=== PATIENT | female | born 1940 | race Caucasian/White ===

== ENCOUNTER 2019-05-09 12:34 | Emergency (ER) | payer OTHER, BC ==
[2019-05-09 12:46] VITALS: BP 159/82; PULSE 59; TEMP 97.8; BMI 29.2
--- NOTE | 2019-05-09 13:02 | PDOC ---
History of Present Illness - General Chief Complaint: Injury Stated Complaint: FALL, RT SHOULDER, UPPER ARM PAIN Time Seen by Provider: 05/09/19 13:02 - History of Present Illness Initial Comments: 05/09/19 14:04 Chief complaint: Right shoulder injury History of present illness: Patient tripped and fell, striking her right shoulder against the ground. This happened immediately [employer]. She complains of pain over the area of the deltoid and inability to abduct her arm due to pain. There is no distal numbness tingling or weakness. There is also pain in the right wrist and fingers. Review of systems denies pain or injury to the head neck chest abdomen spine pelvis or other extremities. Denies loss of consciousness. Denies lightheadedness, dizziness, vertigo, visual or focal neurologic symptoms, unsteadiness of gait Past medical history: High blood pressure, elevated cholesterol, maintained on Plavix but for uncertain reason. She is not aware of having atrial fibrillation or blood clots, and she has no history of angioplasty or stenting. Social/family history reviewed and noncontributory Physical exam: Alert and oriented well-developed well-nourished mild to moderate pain due to right shoulder injury. Cooperative Afebrile, vital signs stable Head atraumatic. PERRLA, fundi benign, ENT clear Neck without tenderness or deformity, full range of motion without pain Lungs clear to P&A. No rib cage or chest wall deformity or point tenderness CV S1 and S2 normal without murmur rub or gallop pulses full and symmetric no JVD or edema no bruits 90 and regular Abdomen soft nontender without mass or organomegaly. No CVAT No pelvic or spine deformity or point tenderness Neurological intact with cranial nerves intact and no focal sensory or motor deficits. Gait stable and unimpaired Extremities: No injury to the extremities except in the area of the right shoulder, right wrist, and right hand Right shoulder: No obvious deformity, but there is inability to abduct beyond 10 -15 due to pain. Tenderness over the anterior shoulder and deltoid regions. Pulses full. No distal sensory deficits. Right wrist: No deformity or point tenderness. No swelling. Good range of motion without significant pain Right hand: There is no deformity, swelling, or point tenderness in the hand or fingers. There are superficial abrasions, small, and shallow. There is full range of motion of all 5 digits in flexion and extension, and no finger swelling or deformity suggestive of fracture. There is mild discomfort with clenching of the fist, not well localized. Impression: Rotator cuff contusion versus fracture proximal humerus. Minor abrasions of the hand. No sign of wrist hand or finger fractures Plan: X-ray of the shoulder reveals a minimally displaced avulsion fracture of the head of the humerus. Soft tissue swelling. No deformity. No dislocation Sling applied with relief of pain. Volar splint to the hand and fingers for comfort. More comfortable after splint application, no distal numbness tingling or pain, with good capillary refill in all 5 digits. Tylenol administered. Referred to Dr. Hoover for orthopedic follow-up. Fully ambulatory and in no significant pain at discharge with family Past History - Past Medical History Allergies/Adverse Reactions: Allergies Allergy/AdvReac Type Severity Reaction Status Date / Time No Known Allergies Allergy Verified 05/09/19 12:35 Home Medications: Ambulatory Orders Metoprolol Succinate [Toprol XL -] 12.5 mg PO DAILY 09/15/12 Rosuvastatin Calcium [Crestor] 5 mg PO HS 09/15/12 Multivitamins W-Minerals/Lut [Centrum Silver Tablet] 1 each PO DAILY 05/02/13 Acetaminophen W/ Codeine #3 [Tylenol # 3] 1 - 2 combo PO Q4H PRN #20 tablet MDD 6 05/09/19 Amlodipine Besylate 2.5 mg PO DAILY 05/09/19 Cholecalciferol (Vitamin D3) [Vitamin D3] 5,000 unit PO DAILY 05/09/19 Clopidogrel Bisulfate [Plavix] 75 mg PO DAILY 05/09/19 Ezetimibe 10 mg PO DAILY 05/09/19 Anemia: No Asthma: No Cancer: No Cardiac Disorders: No CVA: No COPD: No CHF: No Dementia: No Diabetes: No GI Disorders: No Disorders: No HTN: Yes Hypercholesterolemia: Yes Liver Disease: No Seizures: No Thyroid Disease: No - Psycho Social/Smoking Cessation Hx Smoking Status: No Smoking History: Never smoked Number of Cigarettes Smoked Daily: 0 Information on smoking cessation initiated: No Hx Alcohol Use: No Drug/Substance Use Hx: No Substance Use Type: None Hx Substance Use Treatment: No *Physical Exam - Vital Signs Last Vital Signs Temp Pulse Resp BP Pulse Ox 97.8 F 59 L 18 159/82 98 05/09/19 12:34 05/09/19 12:34 05/09/19 12:34 05/09/19 12:34 05/09/19 12:34 Discharge - Discharge Information Problems reviewed: Yes Clinical Impression/Diagnosis: Fracture, humerus, head Condition: Stable Disposition: HOME - Admission No - Additional Discharge Information Prescriptions: Acetaminophen W/ Codeine #3 [Tylenol # 3] 1 - 2 combo PO Q4H PRN #20 tablet MDD 6 PRN Reason: Pain - Follow up/Referral Referrals: Amos Hoover MD [Staff Physician] - 1 week - Patient Discharge Instructions Patient Printed Discharge Instructions: How to Use a Sling, DI for Shoulder Fracture - Post Discharge Activity
[2019-05-09] MEDS ORDERED: ACETAMINOPHEN 325 MG TABLET (FP) ONE (13:42)
[2019-05-09] MEDS ORDERED: ACETAMINOPHEN 325 MG TABLET (FP) PO ONE (13:46)
== END 2019-05-09 14:00 | disposition home or self-care (01) ==
LOC: FER 12:34
DX: S42.301A Unspecified fracture of shaft of humerus, right arm, initial encounter for closed fracture (principal); W18.39XA Other fall on same level, initial encounter; Y93.9 Activity, unspecified; Y92.9 Unspecified place or not applicable; I10 Essential (primary) hypertension; E78.00 Pure hypercholesterolemia, unspecified
CPT/HCPCS: 73030-TC-RT-FY; 99283-25

== ENCOUNTER 2020-06-26 17:00 | Emergency (ER) | payer OTHER, BC ==
[2020-06-26 17:03] VITALS: BP 135/50; PULSE 77; TEMP 98.9; BMI 30.2
[2020-06-26] MEDS ORDERED: ACETAMINOPHEN 325 MG TABLET (FP) PO ONE (17:03)
[2020-06-26] MEDS ORDERED: ACETAMINOPHEN 500 MG TABLET (FP) ONE (17:09)
[2020-06-26] MEDS ORDERED: ACETAMINOPHEN 500 MG TABLET (FP) PO ONE (17:09)
== END 2020-06-26 17:45 | disposition home or self-care (01) ==
LOC: FER 17:00
DX: S93.601A Unspecified sprain of right foot, initial encounter (principal)
CPT/HCPCS: 73610-TC-RT-FY; 73630-TC-RT-FY; 99283-25